=== PATIENT | female | born 1995 | race Caucasian/White ===

== ENCOUNTER 2018-05-26 06:00 | Day surgery (SDC) | payer BC ==
[2018-05-25 14:19] LABS: HEMATOCRIT 39.3 % (36.0-48.0); HEMOGLOBIN 13.7 g/dL (12-16); MCH 30.4 pg (26.0-34.0); MCHC 34.9 g/dL (31.0-37.0); MCV 87.3 fL (80.0-100.0); MEAN PLATELET VOLUME 9.9 fL (7.4-10.4); RBC 4.5 10x6/uL (4.00-5.40); RDW 12.6 % (11.5-14.5); WBC 7.9 10x3/uL (4.8-10.8)
[~2018-05-26] VITALS: Ht 160 cm; Wt 65.8 kg
--- NOTE | ~2018-05-26 | OP ---
PATIENT NAME: CHANDAN MURPHY MEDICAL RECORD: [id number] :95 LOCATION:[facility] ADMISSION DATE: SURGEON: SMOOTH PUENTES DPM DATE OF OPERATION: 05/26/2018 PREOPERATIVE DIAGNOSIS: Accessory navicular, left foot. POSTOPERATIVE DIAGNOSIS: Accessory navicular, left foot. PROCEDURE: Kidner procedure, left foot. ANESTHESIA: General with local infiltrate utilizing lidocaine and Marcaine plain, ankle block, 10 mL total. HEMOSTASIS: Left thigh tourniquet at 350 mmHg. PREOPERATIVE DETAILS: The patient was taken to the OR and placed on the operating table in supine position followed by induction of general anesthesia and infiltration of local anesthetic. The left extremity was then prepped and draped in usual aseptic technique followed by exsanguination and inflation of tourniquet. A 15-blade was used to create a 4-5 cm linear incision over the medial aspect of the left ankle overlying the posterior tibial tendon as it inserts on the navicular. Incision was deepened down through subcutaneous tissue to the tendon sheath, which was incised. The tendon was then visualized and freed from around the accessory navicular, which was then resected in the wound. The medial aspect of the navicular was enlarged, which was debulked utilizing a rongeur as well as a bone rasp. Once smoothed, the wound was flushed utilizing a 4.5 corkscrew anchor into the navicular. The FiberWire was used to repair the posterior tibial tendon back to the navicular with excellent rigid fixation. The tendon sheath as well as deep tissue was reapproximated with 2-0 Vicryl. The subcutaneous tissue was reapproximated with 4-0 Rapide and the skin was closed with 4-0 Rapide in a subcuticular technique followed by Dermabond. Adaptic, 4 x 4 and Conform were used to dress the wound followed by application of a modified Glass compression dressing. Tourniquet was deflated. POSTOPERATIVE DETAILS: The patient tolerated the procedure well and left the OR with vital signs stable and vascular status at preop levels. The patient was transported to recovery per anesthesia in stable condition. TRANSINT:[id number] Voice Confirmation ID: [id number] DOCUMENT ID: [id number] SMOOTH PUENTES DPM at 0922 CC: [id number] DICTATION DATE: 05/26/18919 BRUSHER TENDER: 05/26/18 [address] [facility] [place] 05/26/18 [facility] [address] [place] [id number]
[~2018-05-26 06:00] MED LIST: BREO ELLIPTA 11 EACH INH; JUNEL FE 1.5-31 EACH PO; KLONOPIN0.5 MG PO; PROAIR HFA8.5 GM INH; SINGULAIR10 MG PO
[2018-05-26 06:34] VITALS: BP 107/64; Ht 160 cm; Wt 65.8 kg
[2018-05-26 07:40] LABS: HCG URINE NEGATIVE (NEGATIVE)
== END 2018-05-26 11:40 | disposition home or self-care (01) ==
LOC: D.OPS 06:00 → D.PAN 08:00 → D.OPS 11:40
PROVIDERS: Anesthesiology; Podiatrist
DX: Q74.2 Other congenital malformations of lower limb(s), including pelvic girdle (principal); Z01.812 Encounter for preprocedural laboratory examination

== ENCOUNTER 2019-01-29 21:55 | Emergency (ER) | payer BC ==
[2018-05-26 06:34] VITALS: Ht 160 cm; Wt 68.2 kg
[~2019-01-29] VITALS: Ht 160 cm; Wt 68.2 kg
[2019-01-29 22:36] LABS: BASOPHILS 0.1 % (0-2); EOSINOPHILS 2.7 % (0-7); HEMATOCRIT 43.6 % (36.0-48.0); LYMPHOCYTES 25.5 % (15-50); MCH 30.7 pg (26.0-34.0); MCHC 34.4 g/dL (31.0-37.0); MCV 89.3 fL (80.0-100.0); MEAN PLATELET VOLUME 10.5 fL (7.4-10.4); MONOCYTES 6.4 % (2-11); NEUTROPHILS 64.3 % (40-80); PLATELET COUNT 204 10x3/uL (130-400); RBC 4.88 10x6/uL (4.00-5.40); RDW 12.7 % (11.5-14.5); WBC 13.9 10x3/uL (4.8-10.8)
[2019-01-29] MEDS ORDERED: EFFEXOR XR37.5 MG PO (22:48)
[2019-01-29 22:49] LABS: ALBUMIN 3.9 g/dL (3.4-5.0); ALKALINE PHOSPHATASE 124 U/L (46-116); ALT (SGPT) 65 U/L (10-68); BILIRUBIN - TOTAL 0.25 mg/dL (0.2-1.3); CALC OSMOLALITY 281 mosm/kg (275-300); CALCIUM 8.9 mg/dL (8.5-10.1); CHLORIDE - SERUM 103 mmol/L (98-107); CREATININE - SERUM 0.8 mg/dL (0.6-1.3); GLUCOSE 100 mg/dL (74-106); POTASSIUM - SERUM 3.5 mmol/L (3.5-5.1); PROTEIN - SERUM 7.6 g/dL (6.4-8.2); SODIUM 141 mmol/L (136-145); UREA NITROGEN 16 mg/dL (7-18); eGFR NON AFRICAN AMERICAN > 90 mL/min (90-120)
[2019-01-29 23:07] LABS: APTT 24.4 SECONDS (22.8-39.4); INR 0.87 (0.85-1.17); PROTIME 11.3 SECONDS (11.6-15.0)
[2019-01-29 23:12] VITALS: BP 145/84
[2019-01-29 23:13] LABS: CKMB 0.9 U/L (0.0-3.6); CREATINE KINASE 55 UL (21-215); PRO BNP 88 pg/mL (0-125)
[2019-01-29 23:15] LABS: TROPONIN-I < 0.017 ng/mL (0.000-0.060)
== END 2019-01-29 23:12 | disposition home or self-care (01) ==
LOC: D.ER 21:55
PROVIDERS: Emergency Medicine
DX: F41.9 Anxiety disorder, unspecified (principal); F32.9 Major depressive disorder, single episode, unspecified